=== PATIENT | male | born 1980 | race Caucasian/White ===

== ENCOUNTER 2020-04-22 14:47 | Emergency (ER) | payer BC ==
[2020-04-22] MEDS ORDERED: LIDOCAINE 4%/TETRACAINE 0.5%/EPI 0.18% 5 ML TOPICAL SOLN TOP ONE (16:20)
--- NOTE | 2020-04-22 16:22 | ER Document Report ---
ED Medical Screen (RME) - General Chief Complaint: Laceration Stated Complaint: LACERATION/RIGHT INDEX FINGER Time Seen by Provider: 04/22/20 16:18 Primary Care Provider: COLEMAN ROBLES [Primary Care Provider] - Follow up as needed - HPI Notes: 04/22/20 16:21 39-year-old male presents to the emergency room today for evaluation of a laceration to his right distal index finger which he sustained after he cut his finger on a clean knife approximately 3 hours ago. Tetanus is up-to-date. No active bleeding. Has not tried any [id number] medications. Worse with movement, better with rest. Pain is 3 out of 5, throbbing achy. I have greeted and performed a rapid initial assessment of this patient. A comprehensive ED assessment and evaluation of the patient, analysis of test results and completion of the medical decision making process will be conducted by additional ED providers. PHYSICAL EXAMINATION: GENERAL: Well-appearing, well-nourished and in no acute distress. CV: s1, s2 regular LUNGS: No respiratory distress SKIN: Warm, Dry, normal turgor, no rashes or lesions noted. 2cm linear laceration to volar aspect of 2nd phalanx proximal to DIP The patient was evaluated during a global COVID-19 pandemic and that diagnosis was suspected/considered upon their initial presentation. Their evaluation, treatment and testing was consistent with current guidelines for patients who p resent with complaints or symptoms and may be related to COVID-19. - Related Data Allergies/Adverse Reactions: No Known Allergies Allergy (Verified 04/22/20 16:16) Past Medical History Renal/ Medical History: Reports: Hx Kidney Stones Past Surgical History: Reports: Hx Orthopedic Surgery - Right shoulder - Immunizations Hx Diphtheria, Pertussis, Tetanus Vaccination: Yes - UTD Doctor's Discharge - Discharge Referrals: MARGARET,COLEMAN [Primary Care Provider] - Follow up as needed
[2020-04-22] MEDS ORDERED: LIDOCAINE 1% INJ-PF (10 MG/ML) 30 ML SDV ONE (20:01)
[2020-04-22] MEDS ORDERED: LIDOCAINE 1% INJ (10 MG/ML) 10 ML MDV INJ ONE (20:01)
[2020-04-22] MEDS ORDERED: LIDOCAINE 1% INJ-PF (10 MG/ML) 30 ML SDV INJ ONE (20:02)
--- NOTE | 2020-04-22 20:05 | ER Document Report ---
ED General - General Chief Complaint: Laceration Stated Complaint: LACERATION/RIGHT INDEX FINGER Time Seen by Provider: 04/22/20 16:18 Primary Care Provider: COLEMAN ROBLES [NO LOCAL MD] - Follow up as needed - HPI Notes: Patient is a 39-year-old male who presents emergency department for evaluation after sustaining a laceration to the right index finger. He is left-hand dominant. He was opening a knife, it was a clean knife. His tetanus is up-to-date. He has minimal pain. He described as a throbbing, currently is a 1 out of 5. - Related Data Allergies/Adverse Reactions: No Known Allergies Allergy (Verified 04/22/20 16:16) Home Medications: zoloft Past Medical History - General Information source: Patient - Social History Smoking Status: Current Every Day Smoker Chew tobacco use (# tins/day): No Frequency of alcohol use: Occasional Drug Abuse: None Family History: Reviewed & Not Pertinent Patient has homicidal ideation: No Renal/ Medical History: Reports: Hx Kidney Stones Psychiatric Medical History: Reports: Hx Depression Past Surgical History: Reports: Hx Orthopedic Surgery - Right shoulder, Other - Lithotripsy - Immunizations Hx Diphtheria, Pertussis, Tetanus Vaccination: Yes - UTD Review of Systems - Review of Systems Constitutional: No symptoms reported EENT: No symptoms reported Cardiovascular: No symptoms reported Respiratory: No symptoms reported Gastrointestinal: No symptoms reported Genitourinary: No symptoms reported Musculoskeletal: No symptoms reported Skin: See HPI Neurological/Psychological: No symptoms reported Physical Exam - Vital signs Vitals: Pulse Resp BP Pulse Ox 116 H 20 148/89 H 100 04/22/20 16:30 04/22/20 16:30 04/22/20 16:30 04/22/20 16:30 - Notes Notes: This is a very pleasant 39-year-old male who appears his stated age, no acute di stress. Physical exam is limited year of chief complaint. Examination of the right upper extremity yields a 2 cm laceration overlying the distal interphalangeal joint of the index finger on the palmar aspect. He has full range of motion at the DIP, PIP, MCP. Sensation intact, radial pulse 2+, capillary refill is brisk. Course - Re-evaluation Re-evalutation: 04/22/20 20:04 Patient presents emergency department for evaluation. He sustained a laceration that is gaping enough to require sutures. Please see separate procedure note. Patient has no signs of any sort of tendon injury. He is given instructions on wound care, is to have the sutures removed in 7 days. He is given instructions in regards to signs of infection and what other symptoms should prompt his return. He is currently stable. - Vital Signs Vital signs: Temp Pulse Resp BP Pulse Ox 98.2 F 95 18 150/85 H 100 04/22/20 21:22 04/22/20 21:22 04/22/20 21:22 04/22/20 21:22 04/22/20 21:22 - Laboratory Results Critical Laboratory Results Reviewed: No Critical Results - Radiology Results Critical Radiology Results Reviewed: No Critical Results Procedures - Laceration/Wound Repair Right Finger 2nd digit Wound length (cm): 2 Wound's Depth, Shape: Superficial, Linear Anesthetic type: 1% Lidocaine Volume Anesthetic (mLs): 2 Wound explored: Clean, No foreign body removed Wound Repaired With: Sutures Suture Size/Type: 4:0, Prolene Number of Sutures: 4 Layer Closure?: No Post-procedure wound care: Sterile dressing applied Post-procedure NV exam normal: Yes Complications: No Discharge - Discharge Clinical Impression: Laceration of right index finger Qualifiers: Encounter type: initial encounter Damage to nail status: without damage Foreign body presence: without foreign body Qualified Code(s): S61.210A - Laceration without foreign body of right index finger without damage to nail, initial encounter Condition: Stable Disposition: HOME, SELF-CARE Instructions: Antibiotic Ointment Protection ([facility]), Laceration Care ([facility]), Soap Cleansing ([facility]) Additional Instructions: Keep wound clean with soap and water. Avoid submerging in lakes, pools, ocean. Watch for signs of infection, including but not limited to fevers, increased redness, draining, red streaks. If any of these occur, please return immediately to the ER or see your primary care provider for further evaluation. Have sutures removed in 7 to 10 days. Forms: Return to Work Referrals: LOCALMD,NO [NO LOCAL MD] - Follow up as needed
[2020-04-22 21:24] VITALS: BP 150/85
== END 2020-04-22 21:24 | disposition home or self-care (01) ==
LOC: ER 14:47
DX: S61.210A Laceration without foreign body of right index finger without damage to nail, initial encounter (principal); W26.0XXA Contact with knife, initial encounter; Y93.89 Activity, other specified; F17.200 Nicotine dependence, unspecified, uncomplicated; F32.9 Major depressive disorder, single episode, unspecified; Z79.899 Other long term (current) drug therapy
CPT/HCPCS: 99282